=== PATIENT | female | born 1985 | race Caucasian/White ===

== ENCOUNTER → 2023-10-07 | Outpatient (CLI) | payer MEDICAID ==
--- NOTE | 2023-10-07 14:37 | P.GSHP ---
History of Present Illness H&P Date: 10/07/23 Chief Complaint: juliano Bates is a 38 year old female seen regarding a right breast cyst. This has been present for several years. She had an FNA done and she was told this was benign. She was followed by Dr. Smith in the past, she saw him last last summer. This has recently increased in size. It is painful at times. She had an ablation in 2019 so does not have periods at this time. It does not seem to be cylical. She has not had any open surgery on her breast. Is not complaining of any nipple discharge or skin changes. Her mother was diagnosed with breast cancer approximately one year ago. It was stage II, she was 61. She had surgery and radiation, and hormones therapy no chemotherapy. Last breast imaging was in May 2022; led to a right breast ultrasound was told multiple cyst caffiene: 1-2 cups/day nicotine: none chocolate: occasional BCP: from - hormones: none Familiy History: mother: breast cancer at 61 Hormonal History: menarche: 13 , age at first : 23, breat fed: yes ablation at 35, no periods since than Surgical History: tonsilectomy lithotripsy Medical History: has followed with a orthodontic band maker secondary to shoulder pain but no definitive diagnosis Social History: nicotine: none alcohol: occasional drugs: none - Constitutional Constitutional: Denies chills, Denies fever - EENT Eyes: denies blurred vision, denies pain Ears: deny: decreased hearing, tinnitus Ears, nose, mouth and throat: Denies headache, Denies sore throat - Breasts Breasts: bilateral: as per HPI - Cardiovascular Cardiovascular: Denies chest pain, Denies shortness of breath - Respiratory Respiratory: Denies cough, Denies 7 - Gastrointestinal Gastrointestinal: Denies abdominal pain, Denies diarrhea, Denies nausea, Denies vomiting - Genitourinary (Female) Genitourinary: Reports kidney stones, Denies dysuria, Denies hematuria - Menstruation Menstruation: Reports as per HPI - Musculoskeletal Musculoskeletal: Denies myalgias - Integumentary Integumentary: Denies pruritus, Denies rash - Neurological Comment: raynuads Neurological: Denies numbness, Denies weakness - Psychiatric Psychiatric: Denies anxiety, Denies depression - Endocrine Endocrine: Denies fatigue, Denies weight change - Hematologic/Lymphatic Comment: none - Allergic/Immunologic Allergic/Immunologic: Reports seasonal allergies Medications and Allergies Home Medications Medication Instructions Recorded Confirmed Type Ascorbic Acid [Vitamin C] 1 cap PO DAILY 10/07/23 10/07/23 History L.acidoph,Paracasei, B.lactis 1 cap PO DAILY 10/07/23 10/07/23 History [Probiotic] Allergies Allergy/AdvReac Type Severity Reaction Status Date / Time No Known Allergies Allergy Unverified 10/07/23 14:07 Surgical - Exam - General well developed, well nourished, no distress - Eyes normal ocular movement - ENT no hearing loss, no congestion - Neck no masses, trachea midline - Respiratory normal respiratory effort, clear to auscultation - Cardiovascular Rhythm: regular Heart Sounds: normal: S1, S2 - Abdomen Abdomen: soft, non tender, no guarding, no rigid, no rebound - Integumentary normal turgor - Neurologic no disoriented, no combative - Musculoskeletal normal gait, normal posture - Psychiatric oriented to time, oriented to person, oriented to place, speech is normal, memory intact Breast Exam: BRA: 34C inspection: bilateral grade 2 ptosis Patient: Right breast: Very dense breast tissue in the midportion of the breast and extending to the nipple areolar area, no definite discrete masses within the tissue but it is very dense and firm especially near the nipple areolar complex right Axilla: No adenopathy of concern Left breast: Multiple positional exam fibrocystic changes not as dense and asymmetric to the right side Left axilla: No adenopathy of concern Results no recent mammogram or ultrasound Assessment and Plan Assessment: Impression: Nodularity right breast greater than left; fullest at 12:00 Fibrocystic breast changes Positive family history breast cancer Plan: Bilateral mammogram and right breast ultrasound Follow-up after mammogram and ultrasound We'll consider core biopsy of very dense area of right breast secondary to palpable changes even if the mammogram and ultrasound are negative
[2023-10-07 14:43] VITALS: BP 141/87; PULSE 67; RESP 17; TEMP 97.8
== END ==
LOC: WWCWWP 12:52
PROVIDERS: ATTEND Surgery
DX: N63.10 Unspecified lump in the right breast, unspecified quadrant (principal); N60.11 Diffuse cystic mastopathy of right breast; Z80.3 Family history of malignant neoplasm of breast

== ENCOUNTER → 2023-10-08 | Outpatient (CLI) | payer MEDICAID | END | disposition home or self-care (01) | LOC: RADUSWWP 10:20 | PROVIDERS: ATTEND Surgery | DX: Z53.9 Procedure and treatment not carried out, unspecified reason (principal) ==

== ENCOUNTER → 2023-10-08 | Outpatient (CLI) | payer MEDICAID ==
--- NOTE | 2023-10-08 10:21 | MM ---
Reason for Exam: Clinical finding. Last mammogram was performed 1 year(s) and 4 month(s) ago. Patient History: Menarche at age 13. First Full-Term at age 23. Hormonal Contraceptives for 6 years from age 16 until age 22. Mother had breast cancer, age 60. Risk Values: Jamila 5 year model risk: 0.3%. NCI Lifetime model risk: 6.7%. Tissue Density: The breast tissue is extremely dense which could obscure a lesion on mammography. Findings: Analyzed By CAD. Pattern appears stable. There is persistence of the round density with obscured margins in the subareolar right breast corresponding to the palpable abnormality. Ultrasound is recommended for additional evaluation. No suspicious mammographic abnormality is within the left breast. Overall Assessment: Incomplete: need additional imaging evaluation, BI-RAD 0 Management: Diagnostic Breast Ultrasound of the right breast. A negative mammogram report should not preclude additional follow up of suspicious palpable abnormalities. Patient should continue monthly self breast exam. A clinical breast exam by your physician is recommended on an annual basis and results should be correlated with mammographic findings. Electronically signed and approved by: Harman Rebolledo D.O. Radiologis
--- NOTE | 2023-10-08 11:24 | P.PN ---
Progress Note - Text Progress Note Date: 10/08/23 Patient had bilateral mammogram and right breast ultrasound performed on [id number]. At the area of palpable abnormality in the right breast there is approximately a 2.5 x 2.4 cm simple appearing cyst. We have recommended cyst aspiration under ultrasound guidance. She is going to have this performed and then will follow up after. Otherwise she will have bilateral mammogram and right breast ultrasound in 1 year.
--- NOTE | 2023-10-08 11:28 | USB ---
Reason for Exam: Clinical finding. Patient History: Menarche at age 13. First Full-Term at age 23. Hormonal Contraceptives for 6 years from age 16 until age 22. 2020, FNA Biopsy on the Right side. Mother had breast cancer, age 60. Risk Values: Jamila 5 year model risk: 1.4%. NCI Lifetime model risk: 20.5%. Technique: Method: Targeted. Prior Study Comparison: 12/13/2019 Bilateral Diagnostic Mammogram, [facility]. 12/06/2020 Bilateral Screening Mammogram, Adriana Douglas. 06/17/2022 Bilateral Diagnostic Mammogram, [facility] Douglas. Findings: The area of palpable concern of the right breast, the axilla of the right breast and the retroareolar of the right breast were scanned. Multiple simple appearing cysts are present. These are in the anterior breast correlating with the Mammographic findings. No suspicious solid lesions identified. Largest area measures 2.4 x 1.1 x 2.5 cm 11:00 position 1 cm. Overall Assessment: Benign, BI-RAD 2 Management: Screening Mammogram of both breasts in 7 months. A clinical breast exam by your physician is recommended on an annual basis and results should be correlated with mammographic findings. This exam should not preclude additional follow-up of suspicious palpable abnormalities. Results were given to the patient verbally at the time of exam. Electronically signed and approved by: Harman Rebolledo D.O. Radiologis
== END ==
LOC: WWCWWP 09:44
PROVIDERS: ATTEND Surgery
DX: Z12.31 Encounter for screening mammogram for malignant neoplasm of breast (principal); N60.01 Solitary cyst of right breast; Z80.3 Family history of malignant neoplasm of breast
CPT/HCPCS: 77062; 77066

== ENCOUNTER → 2023-10-21 | Day surgery (SDC) | payer MEDICAID ==
--- NOTE | 2023-10-26 10:57 | USB ---
Risk Values: Jamila 5 year model risk: 1.4%. NCI Lifetime model risk: 20.5%. Prior Study Comparison: 12/06/2020 Bilateral Screening Mammogram, [facility]. 06/17/2022 Bilateral Diagnostic Mammogram, Adriana [facility]omb. 10/08/2023 Bilateral MG 3D diag mammo w/cad [facility], [facility]. 10/08/2023 Right US breast limited RT, [facility]. Pathology Description: Location: 11 o'clock. Pathology Results: Results pending. Pathology Description: Location: 11 o'clock. A- Right breast 1 cmfn, no clip The ultrasound guided cyst aspiration procedure was explained to the patient. The risks, benefits, alternatives were discussed. An informed consent was then obtained. A time out was performed. The patient was placed in supine positioning for imaging and for the procedure. The overlying skin was prepped with betadine and sterilely draped in usual sterile fashion. 5 ml 1% lidocaine was used as anesthetic into the skin and deeper breast tissue up to area of concern in the 11 o'clock 1 cm from the nipple Under ultrasound guidance, an 18-gauge spinal needle was advanced into the cyst and aspiration yielded mL of 5. The fluid was labeled and sent for laboratory analysis. A clip was not placed in lesion. Good hemostasis was obtained with direct pressure. Postprocedure mammogram: The patient was transferred to mammography for physician ordered post procedure mammogram for clip placement verification. The clip is in the expected region of the biopsy. The patient tolerated the procedure well without any immediate complication. The patient was discharged to home in stable condition. Impression: Successful ultrasound guided cyst aspiration right breast. Cytology pending. The ultrasound guided cyst aspiration procedure was explained to the patient. The risks, benefits, alternatives were discussed. An informed consent was then obtained. A time out was performed. The patient was placed in supine positioning for imaging and for the procedure. The overlying skin was prepped with betadine and sterilely draped in usual sterile fashion. 5 ml 1% lidocaine was used as anesthetic into the skin and deeper breast tissue up to area of concern in the 11 o'clock 1 cm from the nipple Under ultrasound guidance, an 18-gauge spinal needle was advanced into the cyst and aspiration yielded 5 mL of yellow-tinged fluid. The fluid was labeled and sent for laboratory analysis. A clip was not placed in lesion. Good hemostasis was obtained with direct pressure. Postprocedure mammogram: The patient was transferred to mammography for physician ordered post procedure mammogram for clip placement verification. The clip is in the expected region of the biopsy. The patient tolerated the procedure well without any immediate complication. The patient was discharged to home in stable condition. Impression: Successful ultrasound guided cyst aspiration right breast. Cytology pending. Pathology Results: Result: Benign, Apocrine metaplasia. A. RIGHT BREAST, ELEVEN O'CLOCK, ASPIRATION: Few ductal cells having apocrine metaplasia within bloody cyst fluid (see note). B. RIGHT BREAST, ELEVEN O'CLOCK, ASPIRATION: Limited hypocellular specimen with cyst contents having peripheral blood, rare macrophages and rare ductal cells having apocrine metaplasia (see note). Current specimen non-diagnostic for neoplasia. Notes If there is still clinical suspicion for malignancy, a core tissue biopsy can be performed. Correlation with imaging studies is suggested, as indicated. Overall Assessment: Benign Management: Diagnostic Mammogram of the right breast in 6 months. Electronically signed and approved by: Chet Ma DO
== END ==
LOC: RADUSWWP 10:15
PROVIDERS: ATTEND Surgery
DX: N60.01 Solitary cyst of right breast (principal)
CPT/HCPCS: 76942; 88108; 88305